=== PATIENT | female | born 1990 | race African-American/Black ===

== ENCOUNTER 2016-05-13 06:22 | Inpatient (IN) | payer BC, MEDICAID ==
[~2016-05-13] VITALS: Ht 157.5 cm; Wt 102.1 kg
[2016-05-13] VITALS (13 sets, daily range): BP systolic 102–125; RESP 17–20; TEMP 97.4–98.6; Ht 157.5 cm; Wt 102.1 kg
[2016-05-13] MEDS ORDERED: LACT RINGERS 1,000 ML IV SCH (06:30)
[2016-05-13] MEDS ORDERED: METOCLOPRAMIDE 10 MG/2 ML VIAL IV PUSH ONE (06:30)
[2016-05-13] MEDS ORDERED: LIDOCAINE 1% BUFFERED 1 ML SYR INTRADERM PRN (06:30)
[2016-05-13] MEDS ORDERED: CEFAZOLIN (LD/OB) 100 ML IV ONE (06:30)
[2016-05-13] MEDS ORDERED: FAMOTIDINE 20 MG INJ IV ONE (06:30)
[2016-05-13] MEDS ORDERED: Flu Vaccine Quadrivalent 60 MCG/0.5 ML IM.VACC ONE (06:35)
[2016-05-13] MEDS ORDERED: SALINE FLUSH 10 ML FLUSH PRN ×2 (07:25→08:35)
[2016-05-13] MEDS ORDERED: MORPHINE 2 MG/ML SYR IV PRN ×2 (07:25)
[2016-05-13] MEDS ORDERED: MEPERIDINE 25 MG/ML IV PRN (07:25)
[2016-05-13] MEDS ORDERED: DILAUDID 1 MG/ML AMP IV PRN (07:25)
[2016-05-13] MEDS ORDERED: NALOXONE 0.4 MG/ML AMP IV PRN (07:25)
[2016-05-13] MEDS ORDERED: ONDANSETRON 4 MG VIAL IV PRN ×3 (07:25→08:35)
[2016-05-13] MEDS ORDERED: PROMETHAZINE 25 MG/ML VIAL IV PRN (07:25)
[2016-05-13] MEDS ORDERED: DIPHENHYDRAMINE 50 MG/ML VIAL IV PRN (07:25)
[2016-05-13] MEDS ORDERED: OXYCODONE 5 MG TAB PO PRN (07:25)
[2016-05-13] MEDS ORDERED: BUTORPHANOL 1 MG/ML VIAL IV PRN (07:25)
[2016-05-13] MEDS ORDERED: MORPHINE 4 MG/ML SYR IV PRN ×2 (07:25)
[2016-05-13] MEDS ORDERED: PHENYLEPHRINE 10 MG/ML VIAL IV ONE (07:41)
[2016-05-13] MEDS ORDERED: OXYTOCIN 10 UNITS/ML VIAL IV ONE (07:41)
[2016-05-13] MEDS ORDERED: ONDANSETRON 4 MG VIAL IV PUSH ONE (07:41)
[2016-05-13] MEDS: SALINE FLUSH 10 ML FLUSH SCH ×3 (08:00→20:00)
[2016-05-13] MEDS ORDERED: MAG HYDROX 30 ML UDC PO PRN ×2 (08:35)
[2016-05-13] MEDS ORDERED: TDaP 0.5 ML VIAL IM.VACC ONE (08:35)
[2016-05-13] MEDS ORDERED: SODIUM CHLORIDE 0.9% FLUSH BAG 500 ML IV PRN (08:35)
[2016-05-13] MEDS ORDERED: MEASLES,MUMPS,RUBELLA VAC SUBQ.VACC ONE (08:35)
[2016-05-13] MEDS: OXYTOCIN 15 UNITS/250 ML NS 250 ML IV SCH ×2 (08:46→08:47)
[2016-05-13] MEDS: DOCUSATE SOD 100 MG CAP PO SCH ×2 (09:00→20:47)
[2016-05-13] MEDS: MISOPROSTOL 200 MCG TAB PO SCH ×2 (09:16→13:03)
[2016-05-13] MEDS: FAMOTIDINE 20 MG TAB PO SCH ×2 (09:16→20:47)
[2016-05-13] MEDS: LACT RINGERS 1,000 ML IV SCH ×2 (10:32→21:52)
[2016-05-13] MEDS: KETOROLAC 30 MG/ML VIAL IV SCH ×2 (11:36→17:53)
[2016-05-14] MEDS: KETOROLAC 30 MG/ML VIAL IV SCH ×2 (00:38→06:06)
[2016-05-14 02:00] VITALS: BP_SYST 98; TEMP 98.3
[2016-05-14 05:10] VITALS: BP_SYST 101; RESP 20; TEMP 97.6
[2016-05-14] MEDS ORDERED: SODIUM CHLORIDE 0.9% FLUSH BAG 500 ML IV SCH (06:00)
[2016-05-14] MEDS ORDERED: IRON SUCROSE COMPLEX 500 MG in SODIUM CHLORIDE 0.9% 250 ML IV ONE (07:55)
[2016-05-14] MEDS: SALINE FLUSH 10 ML FLUSH SCH ×2 (08:00→08:35)
[2016-05-14] MEDS: FAMOTIDINE 20 MG TAB PO SCH ×2 (08:32→20:30)
[2016-05-14] MEDS: DOCUSATE SOD 100 MG CAP PO SCH ×2 (08:32→20:30)
[2016-05-14] MEDS ORDERED: METOPROLOL TART 25 MG TAB PO SCH (09:00)
[2016-05-14 09:31] VITALS: BP_SYST 113; RESP 22; TEMP 98.6
[2016-05-14] MEDS ORDERED: MISSING DOSE XX ONE (09:55)
[2016-05-14] MEDS: Ibuprofen 600 MG TAB PO SCH ×3 (12:19→23:29)
[2016-05-14 17:54] VITALS: BP_SYST 117; RESP 18; TEMP 98.4
[2016-05-15] VITALS (21 sets, daily range): BP systolic 107–136; RESP 11–24; TEMP 98.1–98.4
[2016-05-15] MEDS: Ibuprofen 600 MG TAB PO SCH (05:02)
[2016-05-15] MEDS: FAMOTIDINE 20 MG TAB PO SCH (08:14)
[2016-05-15] MEDS: DOCUSATE SOD 100 MG CAP PO SCH (08:14)
== END 2016-05-15 11:28 | disposition home or self-care (01) | DRG 765 ==
LOC: LD 06:22 → OB 10:45
PROVIDERS: ADMIT Obstetrics & Gynecology; ATTEND Obstetrics & Gynecology
PROC: 10D00Z1 Extraction of Products of Conception, Low, Open Approach (ICD-10-PCS; principal; 2016-05-13)
PROC: 10907ZC Drainage of Amniotic Fluid, Therapeutic from Products of Conception, Via Natural or Artificial Opening (ICD-10-PCS; 2016-05-13)
DX: O34.211 Maternal care for low transverse scar from previous cesarean delivery (principal); E72.12 Methylenetetrahydrofolate reductase deficiency; Z3A.39 39 weeks gestation of pregnancy; Z37.0 Single live birth; O99.284 Endocrine, nutritional and metabolic diseases complicating childbirth; O99.824 Streptococcus B carrier state complicating childbirth; R00.0 Tachycardia, unspecified; O99.214 Obesity complicating childbirth
CPT/HCPCS: 59025; 82803; 85025; 86850; 86900; 86901; 90471